=== PATIENT | female | born 1970 | race African-American/Black ===

== ENCOUNTER 2017-04-18 07:23 | Inpatient (IN) | payer BC ==
[2017-04-17 15:38] LABS: BASOPHILS % (AUTO) 0.4 % (0-1); EOSINOPHILS # (AUTO) 0.2 X10'3 (0-0.9); EOSINOPHILS % (AUTO) 1.9 % (0-6); HEMATOCRIT 39.4 % (35.0-45.0); HEMOGLOBIN 13.1 g/dl (12.0-16.0); LYMPHOCYTES # (AUTO) 2.7 X10'3 (1.1-4.8); LYMPHOCYTES % (AUTO) 29.3 % (21-51); MEAN CORPUSCULAR HEMOGLOBIN 26.6 PG (27.0-31.0); MEAN CORPUSCULAR HGB CONC 33.2 % (33.0-36.5); MEAN CORPUSCULAR VOLUME 80.3 FL (78-98); MEAN PLATELET VOLUME 10.1 FL (7.4-10.4); MONOCYTES # (AUTO) 0.6 X10'3 (0-0.9); MONOCYTES % (AUTO) 6.1 % (2-12); NEUTROPHILS # (AUTO) 5.6 X10'3 (1.8-7.7); NEUTROPHILS % (AUTO) 62.3 % (42-75); PLATELET COUNT 235 X10'3 (140-440); RED BLOOD COUNT 4.91 X10'6 (4.20-5.60); RED CELL DISTRIBUTION WIDTH 14.1 % (11.5-14.5); WHITE BLOOD COUNT 9.1 X10'3 (4.5-11.0)
[2017-04-17 15:49] LABS: PARTIAL THROMBOPLASTIN TIME 27 SECONDS (22-32); PROTHROMBIN TIME 10.3 SECONDS (9.0-12.0)
[2017-04-17 15:56] LABS: ANION GAP 5 (8-16); BLOOD UREA NITROGEN 9 MG/DL (7-18); BUN/CREATININE RATIO 10.3 (6.6-38.0); CHLORIDE 105 MMOL/L (99-107); CREATININE 0.87 MG/DL (0.40-0.90); GLUCOSE 91 MG/DL (70-104); POTASSIUM 4.2 MMOL/L (3.5-5.1); SODIUM 137 MMOL/L (135-145)
[2017-04-17 15:57] LABS: ALANINE AMINOTRANSFERASE 20 U/L (12-78); ALBUMIN 3.8 G/DL (3.4-5.0); ALKALINE PHOSPHATASE 54 IU/L (46-116); ASPARTATE AMINO TRANSFERASE 13 U/L (10-37); BILIRUBIN,TOTAL 0.4 MG/DL (0.1-1.0); CALCIUM 9.3 MG/DL (8.5-10.1); TOTAL PROTEIN 7.7 G/DL (6.4-8.2); eGFR 85 ML/MIN
[2017-04-18] VITALS (19 sets, daily range): BP systolic 102–190; BP diastolic 52–94
[~2017-04-18] VITALS: Ht 165.1 cm; Wt 130.9 kg
[2017-04-18] MEDS ORDERED: diphenhydrAMINE 25mg capsule PO PRN (07:45)
[2017-04-18] MEDS ORDERED: nitroGLYCERIN 0.4mg SUBLingual tab SL PRN (07:45)
[2017-04-18] MEDS ORDERED: LORazepam 0.5 MG tablet PO PRN (07:45)
[2017-04-18] MEDS ORDERED: AMLO2.5T2 PO (08:28)
[2017-04-18] MEDS: normal saline 1000ml 1,000 ML IV SCH ×4 (09:08→19:16)
[2017-04-18] MEDS ORDERED: iohexol 350 MG/ML 50ML vial IV ONE (10:29)
[2017-04-18] MEDS ORDERED: LIDOcaine 1%/PF (10mg/ml) 5ml vial ONE ×3 (10:29→10:57)
[2017-04-18] MEDS ORDERED: iohexol 350MG/ML 100ml bottle IV ONE (10:31)
[2017-04-18] MEDS ORDERED: midazolam 2 mg/2 ml injection ONE (10:36)
[2017-04-18] MEDS ORDERED: fentaNYL/PF 50MCG/1 ML 2ML syringe ONE (10:36)
[2017-04-18] MEDS ORDERED: atropine 0.1mg/ml 10ml syringe ONE (10:53)
[2017-04-18] MEDS ORDERED: heparin 1,000unit/ml 10ml vial 10 ML ONE (11:32)
[2017-04-18] MEDS ORDERED: cyclobenzaprine 10mg tablet PO PRN (12:25)
[2017-04-18] MEDS ORDERED: OXAZEpam 15mg capsule PO PRN (12:25)
[2017-04-18] MEDS ORDERED: magnesium hydroxide 30ml (MOM) UD suspension PO PRN (12:25)
[2017-04-18] MEDS ORDERED: nitroGLYCERIN-Tridil 50MG/D5W 250 ML IV SCH (12:25)
[2017-04-18] MEDS ORDERED: proCHLORperazine 10 MG/2 ml inj IV PRN ×2 (12:25→12:30)
[2017-04-18] MEDS ORDERED: acetaminophen 325mg tablet PO PRN (12:25)
[2017-04-18] MEDS ORDERED: HYDROcodone/acetaminophen 10/325mg tab PO PRN (12:30)
[2017-04-18] MEDS ORDERED: normal saline 1000ml 1,000 ML IV SCH (12:30)
[2017-04-18] MEDS ORDERED: ondansetron/PF 4mg/2ml inj IV PRN (12:30)
[2017-04-18] MEDS ORDERED: heparin 10,000 units/1 ML INJ IV PRN (12:35)
[2017-04-18] MEDS ORDERED: heparin 10,000 units/1 ML INJ IV ONE (12:35)
[2017-04-18 12:57] LABS: BASOPHILS # (AUTO) 0.1 X10'3 (0-0.2); BASOPHILS % (AUTO) 0.8 % (0-1); EOSINOPHILS # (AUTO) 0.1 X10'3 (0-0.9); EOSINOPHILS % (AUTO) 1.9 % (0-6); HEMATOCRIT 38.7 % (35.0-45.0); HEMOGLOBIN 12.9 g/dl (12.0-16.0); LYMPHOCYTES # (AUTO) 2.2 X10'3 (1.1-4.8); LYMPHOCYTES % (AUTO) 36.2 % (21-51); MEAN CORPUSCULAR HEMOGLOBIN 26.6 PG (27.0-31.0); MEAN CORPUSCULAR HGB CONC 33.3 % (33.0-36.5); MEAN CORPUSCULAR VOLUME 79.9 FL (78-98); MEAN PLATELET VOLUME 10.5 FL (7.4-10.4); MONOCYTES # (AUTO) 0.5 X10'3 (0-0.9); MONOCYTES % (AUTO) 7.6 % (2-12); NEUTROPHILS # (AUTO) 3.3 X10'3 (1.8-7.7); NEUTROPHILS % (AUTO) 53.5 % (42-75); PLATELET COUNT 203 X10'3 (140-440); RED BLOOD COUNT 4.84 X10'6 (4.20-5.60); RED CELL DISTRIBUTION WIDTH 14.3 % (11.5-14.5); WHITE BLOOD COUNT 6.1 X10'3 (4.5-11.0)
[2017-04-18 13:11] LABS: CHOL/HDL RATIO 3.1 (0.00-4.99); CHOLESTEROL 193 MG/DL (0-200); HDL CHOLESTEROL 63 MG/DL (35-60); LDL CHOLESTEROL 121 MG/DL (50-100); TRIGLYCERIDES 44 MG/DL (20-135)
[2017-04-18 13:20] LABS: PARTIAL THROMBOPLASTIN TIME 53 SECONDS (22-32); PROTHROMBIN TIME 10.7 SECONDS (9.0-12.0)
[2017-04-18] MEDS ORDERED: LORazepam 2 mg/ml vial IV ONE (13:50)
[2017-04-18] MEDS ORDERED: famotidine/PF 10 mg/ml inj IV ONE (13:50)
[2017-04-18] MEDS ORDERED: MESSAGE TO NURSING IV ONE (14:30)
[2017-04-18] MEDS ORDERED: dextrose 50%-water 50ml dispensing syringe IV PRN (14:30)
[2017-04-18] MEDS ORDERED: MESSAGE TO NURSING PO ONE ×4 (14:30)
[2017-04-18 16:22] LABS: LARGE PLATELETS FEW; PLATELET ESTIMATE NORMAL
[2017-04-18] MEDS ORDERED: albuterol 2.5 MG/3 ML nebule NEB ONE (17:10)
[2017-04-18 17:36] LABS: HEMOGLOBIN A1C 5.1 % (4.5-6.2)
[2017-04-18 17:41] LABS: ALANINE AMINOTRANSFERASE 16 U/L (12-78); ALBUMIN 3.2 G/DL (3.4-5.0); ALBUMIN/GLOBULIN RATIO 0.9 (1.1-1.5); ALKALINE PHOSPHATASE 47 IU/L (46-116); ANION GAP 10 (8-16); ASPARTATE AMINO TRANSFERASE 10 U/L (10-37); BILIRUBIN,TOTAL 0.4 MG/DL (0.1-1.0); BLOOD UREA NITROGEN 8 MG/DL (7-18); CALCIUM 8.6 MG/DL (8.5-10.1); CHLORIDE 106 MMOL/L (99-107); CREATININE 0.73 MG/DL (0.40-0.90); GLUCOSE 87 MG/DL (70-104); POTASSIUM 3.8 MMOL/L (3.5-5.1); SODIUM 140 MMOL/L (135-145); TOTAL CARBON DIOXIDE 24.3 MMOL/L (24-32); TOTAL PROTEIN 6.9 G/DL (6.4-8.2); eGFR > 90 ML/MIN
[2017-04-18] MEDS: HYDROcodone/acetaminophen 5mg/325mg tablet PO PRN ×2 (17:57→22:27)
[2017-04-18 18:01] LABS: ABG HCO3 20.4 mmol/L (22.0-26.0); ABG PCO2 (T) 31.5 mmHg (32.0-45.0); ABG PH (T) 7.429 (7.350-7.450); ABG PO2 (T) 88.9 mmHg (83-108); FCOHb 0.2 % (0.5-1.5); FMetHb 0.1 % (0.3-1.12); FO2Hb 96.7 % (94-100); TOTAL HEMOGLOBIN 12.9 G/dl (12.0-16.0)
[2017-04-18] MEDS: docusate sod 100mg capsule PO SCH (20:29)
[2017-04-18] MEDS: mupirocin 2% ointment 22GM NS SCH (20:29)
[2017-04-18] MEDS ORDERED: atorvastatin 20mg tablet PO SCH (21:00)
[2017-04-19] VITALS (24 sets, daily range): BP systolic 106–166; BP diastolic 45–82
[2017-04-19] MEDS: normal saline 1000ml 1,000 ML IV SCH (01:35)
[2017-04-19 02:41] LABS: BASOPHILS % (AUTO) 0.3 % (0-1); EOSINOPHILS % (AUTO) 0.4 % (0-6); HEMATOCRIT 32.9 % (35.0-45.0); LYMPHOCYTES # (AUTO) 1.4 X10'3 (1.1-4.8); LYMPHOCYTES % (AUTO) 20.2 % (21-51); MEAN CORPUSCULAR HEMOGLOBIN 26.6 PG (27.0-31.0); MEAN CORPUSCULAR HGB CONC 33.4 % (33.0-36.5); MEAN CORPUSCULAR VOLUME 79.8 FL (78-98); MEAN PLATELET VOLUME 10.5 FL (7.4-10.4); MONOCYTES # (AUTO) 0.5 X10'3 (0-0.9); MONOCYTES % (AUTO) 7.6 % (2-12); NEUTROPHILS # (AUTO) 4.8 X10'3 (1.8-7.7); NEUTROPHILS % (AUTO) 71.5 % (42-75); PLATELET COUNT 170 X10'3 (140-440); RED BLOOD COUNT 4.11 X10'6 (4.20-5.60); RED CELL DISTRIBUTION WIDTH 14.3 % (11.5-14.5); WHITE BLOOD COUNT 6.8 X10'3 (4.5-11.0)
[2017-04-19 02:56] LABS: ALANINE AMINOTRANSFERASE 19 U/L (12-78); ALBUMIN/GLOBULIN RATIO 0.9 (1.1-1.5); ALKALINE PHOSPHATASE 41 IU/L (46-116); ANION GAP 6 (8-16); ASPARTATE AMINO TRANSFERASE 12 U/L (10-37); BILIRUBIN,TOTAL 0.3 MG/DL (0.1-1.0); BLOOD UREA NITROGEN 9 MG/DL (7-18); BUN/CREATININE RATIO 11.8 (6.6-38.0); CALCIUM 8.2 MG/DL (8.5-10.1); CHLORIDE 109 MMOL/L (99-107); CREATININE 0.76 MG/DL (0.40-0.90); GLUCOSE 110 MG/DL (70-104); POTASSIUM 3.7 MMOL/L (3.5-5.1); SODIUM 140 MMOL/L (135-145); TOTAL CARBON DIOXIDE 25.1 MMOL/L (24-32); TOTAL PROTEIN 6.2 G/DL (6.4-8.2); eGFR > 90 ML/MIN
[2017-04-19] MEDS ORDERED: cefazolin/dext.iso 2gm/50ml 50 ML IV ONE (06:30)
[2017-04-19] MEDS ORDERED: vancomycin/NS 1 GM ADD-VANTAGE 250 ML IV ONE (06:30)
[2017-04-19] MEDS: docusate sod 100mg capsule PO SCH ×2 (08:00→20:00)
[2017-04-19] MEDS ORDERED: calcium chloride 100 MG/1 ML inj IV ONE (08:00)
[2017-04-19] MEDS ORDERED: aspirin 81mg tab.chew PO SCH (08:00)
[2017-04-19] MEDS ORDERED: heparin 1,000 units/ml 10ml inj ONE (08:00)
[2017-04-19] MEDS ORDERED: papaverine 30 mg/ml 2ml inj. ONE (08:00)
[2017-04-19] MEDS ORDERED: heparin 10,000 units/1 ML INJ ONE (08:00)
[2017-04-19] MEDS: HYDROcodone/acetaminophen 5mg/325mg tablet PO PRN (08:33)
[2017-04-19] MEDS: mupirocin 2% ointment 22GM NS SCH ×2 (08:33→20:05)
[2017-04-19] MEDS ORDERED: MESSAGE TO NURSING PO ONE (10:00)
[2017-04-19] MEDS ORDERED: SUFENTANIL CITRATE 50 MCG/ML 2ml ampule IV ONE (10:37)
[2017-04-19] MEDS ORDERED: MIDAZolam 1mg/ml 10ml vial ONE (10:37)
[2017-04-19] MEDS ORDERED: LIDOcaine 2% 5ml jelly ONE (10:41)
[2017-04-19] MEDS ORDERED: propofol inj 20 ML IV ONE (10:50)
[2017-04-19] MEDS ORDERED: phenylephrine 10mg/ml inj IV ONE (10:51)
[2017-04-19] MEDS ORDERED: rocuronium 10mg/ml inj IV ONE ×3 (10:51→14:34)
[2017-04-19] MEDS ORDERED: ePHEDrine 50MG/ML INJ. ONE (10:51)
[2017-04-19] MEDS ORDERED: LIDOcaine 2% (20mg/ml) 5ml vial ONE (10:51)
[2017-04-19] MEDS ORDERED: 0.9 % SODIUM CHLORIDE 10 ML VIAL ONE ×2 (10:51)
[2017-04-19] MEDS ORDERED: fentaNYL/PF 50MCG/1 ML 2ML syringe IV PRN (10:55)
[2017-04-19] MEDS ORDERED: midazolam 2 mg/2 ml injection IV PRN (10:55)
[2017-04-19] MEDS ORDERED: protamine sulf. 10mg/ml inj. IV ONE (11:00)
[2017-04-19] MEDS ORDERED: niCARDipine in sodium Chloride, iso-osm 20mg/200ml bag IV ONE (11:00)
[2017-04-19] MEDS ORDERED: isoflurane 100ml inhalation liquid IH ONE (11:00)
[2017-04-19] MEDS ORDERED: metoprolol tartrate 1mg/ml inj IV ONE ×2 (11:00→14:50)
[2017-04-19] MEDS ORDERED: nitroGLYCERIN in D5W 50mg/250ml (Tridil) infusion IV ONE (11:00)
[2017-04-19 11:56] LABS: ABG HCO3 20.3 mmol/L (22.0-26.0); ABG OXYGEN SATURATION 99.1 % (95-98); ABG PCO2 34.3 mmHg (35.0-45.0); ABG PO2 461.3 mmHg (60.0-100.0); CL (ABG) 107 mmol/L (99-107); FCOHb 0.3 % (0.5-1.5); FMetHb 1.2 % (0.3-1.12); FO2Hb 97.6 % (94-100); GLUCOSE (ABG) 95 mg/dl (70-105); IONIZED CA (ABG) 1.15 mmol/L (1.03-1.32); K (ABG) 3.7 mmol/L (3.3-5.1); NA (ABG) 137 mmol/L (135-145); TOTAL HEMOGLOBIN 11.8 G/dl (12.0-16.0)
[2017-04-19] MEDS ORDERED: papaverine 30 mg/ml 2ml inj. IA ONE (12:26)
[2017-04-19] MEDS ORDERED: insulin Lispro (HumaLOG) vial - multi-dose SQ SCH (13:00)
[2017-04-19] MEDS ORDERED: DOPamine 400mg/D5W 250ml 250 ML IV PRN (14:59)
[2017-04-19] MEDS ORDERED: nitroGLYCERIN-Tridil 50MG/D5W 250 ML IV PRN (14:59)
[2017-04-19] MEDS ORDERED: sodium chloride 0.45% 1,000 ML IV SCH (14:59)
[2017-04-19] MEDS ORDERED: dextrose 50%-water 50ml dispensing syringe IV PRN (15:00)
[2017-04-19] MEDS ORDERED: sodium phosphate inj. 30 MMOL in dextrose 5%-water 250 ML IV PRN (15:00)
[2017-04-19] MEDS ORDERED: normal saline 250ml IV soln 250 ML IV PRN (15:00)
[2017-04-19] MEDS ORDERED: insulin regular, human inj. 100 UNITS in normal saline 100ml IV soln 100 ML IV SCH ×2 (15:00)
[2017-04-19] MEDS ORDERED: magnesium hydroxide 30ml (MOM) UD suspension PO PRN (15:00)
[2017-04-19] MEDS ORDERED: Neutra Phos packet PO PRN (15:00)
[2017-04-19] MEDS ORDERED: morphine sulfate 8 MG/ML SYRINGE IV PRN (15:00)
[2017-04-19] MEDS ORDERED: sodium phosphate inj. 15 MMOL in dextrose 5%-water 150 ML IV PRN (15:00)
[2017-04-19] MEDS ORDERED: magnesium 4gm in 100ml NS 100 ML IV PRN (15:00)
[2017-04-19] MEDS ORDERED: acetaminophen 325mg tablet PO PRN (15:00)
[2017-04-19] MEDS ORDERED: magnesium 2GM in 50ml NS 50 ML IV PRN (15:00)
[2017-04-19] MEDS ORDERED: potassium Cl 20mEq/100mL bag 100 ML IV PRN ×2 (15:00)
[2017-04-19] MEDS ORDERED: metoclopramide 5 mg/ml inj IV PRN (15:00)
[2017-04-19] MEDS ORDERED: albumin (Human) 5% 250ml 250 ML IV PRN (15:00)
[2017-04-19] MEDS ORDERED: ondansetron/PF 4mg/2ml inj IV PRN (15:00)
[2017-04-19 15:36] LABS: ABG BASE EXCESS -3.7 mmol/L (-2.0-3.0); ABG HCO3 21.7 mmol/L (22.0-26.0); ABG OXYGEN SATURATION 99.2 % (95-98); ABG PCO2 (T) 39.4 mmHg (32.0-45.0); ABG PH (T) 7.357 (7.350-7.450); FCOHb 0.3 % (0.5-1.5); FMetHb 0.2 % (0.3-1.12); FO2Hb 98.7 % (94-100); PATIENT TEMPERATURE 36.4; PEEP 5 cm H2O; RESPIRATORY RATE 12 b/min; TIDAL VOLUME 600 mL; TOTAL HEMOGLOBIN 12.6 G/dl (12.0-16.0)
[2017-04-19] MEDS: insulin regular, human inj. 100 UNITS in normal saline 100ml IV soln 100 ML IV SCH ×4 (15:43→19:06)
[2017-04-19] MEDS: morphine sulfate 8 MG/ML SYRINGE IV PRN ×2 (15:44→16:12)
[2017-04-19 15:52] LABS: BASOPHILS % (AUTO) 0.3 % (0-1); EOSINOPHILS # (AUTO) 0.2 X10'3 (0-0.9); EOSINOPHILS % (AUTO) 1.4 % (0-6); HEMOGLOBIN 11.6 g/dl (12.0-16.0); LYMPHOCYTES # (AUTO) 2.4 X10'3 (1.1-4.8); LYMPHOCYTES % (AUTO) 16.4 % (21-51); MEAN CORPUSCULAR HEMOGLOBIN 26.5 PG (27.0-31.0); MEAN CORPUSCULAR HGB CONC 33.1 % (33.0-36.5); MEAN CORPUSCULAR VOLUME 80.1 FL (78-98); MEAN PLATELET VOLUME 10.5 FL (7.4-10.4); MONOCYTES # (AUTO) 0.8 X10'3 (0-0.9); MONOCYTES % (AUTO) 5.5 % (2-12); NEUTROPHILS # (AUTO) 11.1 X10'3 (1.8-7.7); NEUTROPHILS % (AUTO) 76.4 % (42-75); PLATELET COUNT 172 X10'3 (140-440); RED BLOOD COUNT 4.36 X10'6 (4.20-5.60); RED CELL DISTRIBUTION WIDTH 13.8 % (11.5-14.5); WHITE BLOOD COUNT 14.5 X10'3 (4.5-11.0)
[2017-04-19] MEDS ORDERED: CEFAZOLIN SODIUM/NORMAL SALINE 100 ML IV SCH (16:00)
[2017-04-19 16:06] LABS: ALANINE AMINOTRANSFERASE 12 U/L (12-78); ALBUMIN 2.8 G/DL (3.4-5.0); ALBUMIN/GLOBULIN RATIO 0.8 (1.1-1.5); ALKALINE PHOSPHATASE 42 IU/L (46-116); ANION GAP 8 (8-16); ASPARTATE AMINO TRANSFERASE 11 U/L (10-37); BILIRUBIN,TOTAL 0.6 MG/DL (0.1-1.0); BLOOD UREA NITROGEN 6 MG/DL (7-18); BUN/CREATININE RATIO 8.3 (6.6-38.0); CHLORIDE 108 MMOL/L (99-107); CREATININE 0.72 MG/DL (0.40-0.90); GLUCOSE 137 MG/DL (70-104); MAGNESIUM 1.5 MG/DL (1.5-2.4); PHOSPHORUS 2.9 MG/DL (2.3-4.5); POTASSIUM 3.6 MMOL/L (3.5-5.1); SODIUM 140 MMOL/L (135-145); TOTAL CARBON DIOXIDE 24.4 MMOL/L (24-32); TOTAL PROTEIN 6.1 G/DL (6.4-8.2); eGFR > 90 ML/MIN
[2017-04-19] MEDS: niCARDipine/sod cl 20mg/200ml 200 ML IV PRN ×2 (16:19→19:06)
[2017-04-19 16:24] LABS: INR 1.1 INR; PARTIAL THROMBOPLASTIN TIME 26 SECONDS (22-32); PROTHROMBIN TIME 11.4 SECONDS (9.0-12.0)
[2017-04-19] MEDS: insulin Lispro (HumaLOG) vial - multi-dose SQ SCH (16:25)
[2017-04-19] MEDS ORDERED: propofol 1000mg/100ml bottle 100 ML IV ONE (16:46)
[2017-04-19] MEDS: propofol 1000mg/100ml bottle 100 ML IV PRN ×2 (16:49→22:51)
[2017-04-19] MEDS: vancomycin/NS 1 GM ADD-VANTAGE 250 ML IV SCH (20:04)
[2017-04-19] MEDS: potassium Cl 20mEq/100mL bag 100 ML IV PRN ×2 (20:05→22:32)
[2017-04-20] VITALS (24 sets, daily range): BP systolic 106–142; BP diastolic 47–72
[2017-04-20] MEDS: ceFAZolin/D5W- 1GM premix 50 ML IV SCH ×4 (00:29→23:26)
[2017-04-20 00:41] LABS: BASOPHILS % (AUTO) 0.1 % (0-1); EOSINOPHILS % (AUTO) 0 % (0-6); HEMATOCRIT 33.4 % (35.0-45.0); HEMOGLOBIN 11.2 g/dl (12.0-16.0); LYMPHOCYTES # (AUTO) 0.9 X10'3 (1.1-4.8); LYMPHOCYTES % (AUTO) 6.1 % (21-51); MEAN CORPUSCULAR HEMOGLOBIN 26.6 PG (27.0-31.0); MEAN CORPUSCULAR HGB CONC 33.5 % (33.0-36.5); MEAN CORPUSCULAR VOLUME 79.3 FL (78-98); MEAN PLATELET VOLUME 10.3 FL (7.4-10.4); MONOCYTES # (AUTO) 0.7 X10'3 (0-0.9); MONOCYTES % (AUTO) 5.2 % (2-12); NEUTROPHILS # (AUTO) 12.3 X10'3 (1.8-7.7); NEUTROPHILS % (AUTO) 88.6 % (42-75); PLATELET COUNT 188 X10'3 (140-440); RED BLOOD COUNT 4.21 X10'6 (4.20-5.60); RED CELL DISTRIBUTION WIDTH 14.3 % (11.5-14.5); WHITE BLOOD COUNT 13.9 X10'3 (4.5-11.0)
[2017-04-20 01:05] LABS: PARTIAL THROMBOPLASTIN TIME 29 SECONDS (22-32); PROTHROMBIN TIME 10.7 SECONDS (9.0-12.0)
[2017-04-20 01:06] LABS: ALANINE AMINOTRANSFERASE 13 U/L (12-78); ALBUMIN 2.7 G/DL (3.4-5.0); ALBUMIN/GLOBULIN RATIO 0.8 (1.1-1.5); ALKALINE PHOSPHATASE 43 IU/L (46-116); ANION GAP 6 (8-16); ASPARTATE AMINO TRANSFERASE 15 U/L (10-37); BILIRUBIN,TOTAL 0.3 MG/DL (0.1-1.0); BLOOD UREA NITROGEN 4 MG/DL (7-18); CHLORIDE 107 MMOL/L (99-107); CREATININE 0.57 MG/DL (0.40-0.90); GLUCOSE 113 MG/DL (70-104); MAGNESIUM 2.4 MG/DL (1.5-2.4); PHOSPHORUS 2.4 MG/DL (2.3-4.5); POTASSIUM 4.1 MMOL/L (3.5-5.1); SODIUM 137 MMOL/L (135-145); TOTAL CARBON DIOXIDE 24.5 MMOL/L (24-32); TOTAL PROTEIN 6.1 G/DL (6.4-8.2); eGFR > 90 ML/MIN
[2017-04-20] MEDS: potassium Cl 20mEq/100mL bag 100 ML IV PRN ×2 (01:40→04:48)
[2017-04-20] MEDS: niCARDipine/sod cl 20mg/200ml 200 ML IV PRN ×2 (02:13→08:02)
[2017-04-20] MEDS: propofol 1000mg/100ml bottle 100 ML IV PRN (02:13)
[2017-04-20 05:31] LABS: ABG BASE EXCESS -5.2 mmol/L (-2.0-3.0); ABG HCO3 18.9 mmol/L (22.0-26.0); ABG OXYGEN SATURATION 97.5 % (95-98); ABG PCO2 (T) 32.6 mmHg (32.0-45.0); ABG PH (T) 7.382 (7.350-7.450); ABG PO2 (T) 102.8 mmHg (83-108); FCOHb 0.3 % (0.5-1.5); FMetHb 0.2 % (0.3-1.12); MINUTE VOLUME 9 L/min; PATIENT TEMPERATURE 37.6; PEEP 5 cm H2O; RESPIRATORY RATE (OBSERVED) 16 b/min; TOTAL HEMOGLOBIN 11.7 G/dl (12.0-16.0)
[2017-04-20] MEDS: atorvastatin 10mg tablet PO SCH (08:00)
[2017-04-20] MEDS ORDERED: metoprolol tartrate 12.5mg (1/2 tablet) PO SCH (08:00)
[2017-04-20] MEDS: docusate sod 100mg capsule PO SCH ×2 (08:00→19:35)
[2017-04-20] MEDS: aspirin 325mg tablet, delayed-release (Ecotrin) PO SCH (08:00)
[2017-04-20] MEDS: pantoprazole 40mg Tablet.DR PO SCH (08:00)
[2017-04-20] MEDS: mupirocin 2% ointment 22GM NS SCH ×2 (08:02→19:35)
[2017-04-20 08:57] LABS: MAGNESIUM 2.9 MG/DL (1.5-2.4); POTASSIUM 4.4 MMOL/L (3.5-5.1)
[2017-04-20] MEDS ORDERED: metoprolol tartrate 12.5mg (1/2 tablet) PO ONE (09:00)
[2017-04-20] MEDS: insulin Lispro (HumaLOG) vial - multi-dose SQ SCH ×3 (09:00→18:00)
[2017-04-20] MEDS: vancomycin/NS 1 GM ADD-VANTAGE 250 ML IV SCH ×2 (09:15→19:35)
[2017-04-20] MEDS: HYDROcodone/acetaminophen 10/325mg tab PO PRN ×2 (12:55→23:26)
[2017-04-20] MEDS: LACTOSE-FREE FOOD (BOOST BREEZE) 237ML PO SCH ×2 (13:00→18:00)
[2017-04-20] MEDS ORDERED: mineral oil/petrolatum ophthal oint EACHEYE SCH (14:00)
[2017-04-20] MEDS: metoprolol tartrate 12.5mg (1/2 tablet) PO SCH (19:35)
[2017-04-21] VITALS (21 sets, daily range): BP systolic 90–136; BP diastolic 53–78
[2017-04-21 02:26] LABS: BASOPHILS % (AUTO) 0 % (0-1); EOSINOPHILS # (AUTO) 0.1 X10'3 (0-0.9); EOSINOPHILS % (AUTO) 0.5 % (0-6); HEMATOCRIT 30.8 % (35.0-45.0); HEMOGLOBIN 10.2 g/dl (12.0-16.0); LYMPHOCYTES # (AUTO) 1.2 X10'3 (1.1-4.8); LYMPHOCYTES % (AUTO) 10.8 % (21-51); MEAN CORPUSCULAR HEMOGLOBIN 26.6 PG (27.0-31.0); MEAN CORPUSCULAR HGB CONC 33.1 % (33.0-36.5); MEAN CORPUSCULAR VOLUME 80.3 FL (78-98); MEAN PLATELET VOLUME 11.2 FL (7.4-10.4); MONOCYTES # (AUTO) 0.9 X10'3 (0-0.9); MONOCYTES % (AUTO) 8.3 % (2-12); NEUTROPHILS # (AUTO) 9.1 X10'3 (1.8-7.7); NEUTROPHILS % (AUTO) 80.4 % (42-75); PLATELET COUNT 172 X10'3 (140-440); RED BLOOD COUNT 3.84 X10'6 (4.20-5.60); RED CELL DISTRIBUTION WIDTH 14.5 % (11.5-14.5); WHITE BLOOD COUNT 11.3 X10'3 (4.5-11.0)
[2017-04-21 02:38] LABS: ALBUMIN 2.4 G/DL (3.4-5.0); ANION GAP 8 (8-16); BLOOD UREA NITROGEN 8 MG/DL (7-18); BUN/CREATININE RATIO 9.4 (6.6-38.0); CHLORIDE 107 MMOL/L (99-107); CREATININE 0.85 MG/DL (0.40-0.90); GLUCOSE 107 MG/DL (70-104); MAGNESIUM 2.4 MG/DL (1.5-2.4); PHOSPHORUS 2.6 MG/DL (2.3-4.5); POTASSIUM 4.5 MMOL/L (3.5-5.1); SODIUM 137 MMOL/L (135-145); TOTAL CARBON DIOXIDE 22.4 MMOL/L (24-32); eGFR 87 ML/MIN
[2017-04-21] MEDS: insulin regular, human inj. 100 UNITS in normal saline 100ml IV soln 100 ML IV SCH ×2 (06:30)
[2017-04-21] MEDS: HYDROcodone/acetaminophen 10/325mg tab PO PRN ×2 (06:52→15:33)
[2017-04-21] MEDS: aspirin 325mg tablet, delayed-release (Ecotrin) PO SCH (07:26)
[2017-04-21] MEDS: metoprolol tartrate 12.5mg (1/2 tablet) PO SCH ×2 (07:26→20:39)
[2017-04-21] MEDS: atorvastatin 10mg tablet PO SCH (07:26)
[2017-04-21] MEDS: docusate sod 100mg capsule PO SCH ×2 (07:26→20:39)
[2017-04-21] MEDS: mupirocin 2% ointment 22GM NS SCH (07:26)
[2017-04-21] MEDS: pantoprazole 40mg Tablet.DR PO SCH (08:24)
[2017-04-21] MEDS: insulin Lispro (HumaLOG) vial - multi-dose SQ SCH (08:25)
[2017-04-21] MEDS: LACTOSE-FREE FOOD (BOOST BREEZE) 237ML PO SCH ×3 (08:28→18:00)
[2017-04-21 08:32] LABS: LARGE PLATELETS FEW; PLATELET ESTIMATE NORMAL
[2017-04-22 03:00] VITALS: BP 121/62
[2017-04-22 05:08] LABS: BASOPHILS % (AUTO) 0.3 % (0-1); EOSINOPHILS # (AUTO) 0.2 X10'3 (0-0.9); EOSINOPHILS % (AUTO) 2.5 % (0-6); HEMATOCRIT 30.5 % (35.0-45.0); LYMPHOCYTES # (AUTO) 1.5 X10'3 (1.1-4.8); LYMPHOCYTES % (AUTO) 17.9 % (21-51); MEAN CORPUSCULAR HEMOGLOBIN 26.4 PG (27.0-31.0); MEAN CORPUSCULAR HGB CONC 32.8 % (33.0-36.5); MEAN CORPUSCULAR VOLUME 80.7 FL (78-98); MEAN PLATELET VOLUME 10.3 FL (7.4-10.4); MONOCYTES # (AUTO) 0.7 X10'3 (0-0.9); MONOCYTES % (AUTO) 8.8 % (2-12); NEUTROPHILS # (AUTO) 5.8 X10'3 (1.8-7.7); NEUTROPHILS % (AUTO) 70.5 % (42-75); PLATELET COUNT 179 X10'3 (140-440); RED BLOOD COUNT 3.78 X10'6 (4.20-5.60); RED CELL DISTRIBUTION WIDTH 14.6 % (11.5-14.5); WHITE BLOOD COUNT 8.2 X10'3 (4.5-11.0)
[2017-04-22 05:19] LABS: ALBUMIN 2.2 G/DL (3.4-5.0); ANION GAP 10 (8-16); BLOOD UREA NITROGEN 7 MG/DL (7-18); CALCIUM 8.1 MG/DL (8.5-10.1); CHLORIDE 105 MMOL/L (99-107); GLUCOSE 106 MG/DL (70-104); MAGNESIUM 1.9 MG/DL (1.5-2.4); PHOSPHORUS 2.7 MG/DL (2.3-4.5); POTASSIUM 3.8 MMOL/L (3.5-5.1); SODIUM 138 MMOL/L (135-145); eGFR > 90 ML/MIN
[2017-04-22 06:35] VITALS: BP 115/62
[2017-04-22] MEDS: atorvastatin 10mg tablet PO SCH (07:24)
[2017-04-22] MEDS: pantoprazole 40mg Tablet.DR PO SCH (07:24)
[2017-04-22] MEDS: docusate sod 100mg capsule PO SCH ×2 (07:25→19:18)
[2017-04-22] MEDS: metoprolol tartrate 12.5mg (1/2 tablet) PO SCH ×2 (07:26→19:18)
[2017-04-22] MEDS: aspirin 325mg tablet, delayed-release (Ecotrin) PO SCH (07:26)
[2017-04-22] MEDS: HYDROcodone/acetaminophen 10/325mg tab PO PRN ×3 (07:26→20:30)
[2017-04-22] MEDS: LACTOSE-FREE FOOD (BOOST BREEZE) 237ML PO SCH ×3 (08:00→18:00)
[2017-04-22] MEDS ORDERED: magnesium 4gm in 100ml NS 100 ML IV PRN (10:05)
[2017-04-22] MEDS ORDERED: potassium Cl 40MEQ/NS 500ml 500 ML IV PRN ×2 (10:05)
[2017-04-22] MEDS ORDERED: potassium Cl 20 mEq SR tablet PO PRN (10:05)
[2017-04-22] MEDS ORDERED: magnesium Cl slow-release 64mg tablet PO PRN (10:05)
[2017-04-22 11:00] VITALS: BP 106/62
[2017-04-22] MEDS ORDERED: furosemide 40mg tablet PO ONE (13:55)
[2017-04-22 15:00] VITALS: BP 121/68
[2017-04-22 19:00] VITALS: BP 121/78
[2017-04-22 23:00] VITALS: BP 112/76
[2017-04-23 03:00] VITALS: BP 139/72
[2017-04-23 05:00] LABS: BASOPHILS % (AUTO) 0.4 % (0-1); EOSINOPHILS # (AUTO) 0.2 X10'3 (0-0.9); EOSINOPHILS % (AUTO) 3.1 % (0-6); HEMATOCRIT 29.4 % (35.0-45.0); HEMOGLOBIN 9.6 g/dl (12.0-16.0); LYMPHOCYTES # (AUTO) 1.5 X10'3 (1.1-4.8); LYMPHOCYTES % (AUTO) 18.8 % (21-51); MEAN CORPUSCULAR HEMOGLOBIN 26.4 PG (27.0-31.0); MEAN CORPUSCULAR HGB CONC 32.7 % (33.0-36.5); MONOCYTES # (AUTO) 0.7 X10'3 (0-0.9); MONOCYTES % (AUTO) 8.6 % (2-12); NEUTROPHILS # (AUTO) 5.5 X10'3 (1.8-7.7); NEUTROPHILS % (AUTO) 69.1 % (42-75); PLATELET COUNT 232 X10'3 (140-440); RED BLOOD COUNT 3.63 X10'6 (4.20-5.60); RED CELL DISTRIBUTION WIDTH 14.6 % (11.5-14.5); WHITE BLOOD COUNT 7.9 X10'3 (4.5-11.0)
[2017-04-23 05:29] LABS: ALBUMIN 2.1 G/DL (3.4-5.0); ANION GAP 9 (8-16); BLOOD UREA NITROGEN 7 MG/DL (7-18); BUN/CREATININE RATIO 8.4 (6.6-38.0); CALCIUM 8.1 MG/DL (8.5-10.1); CHLORIDE 105 MMOL/L (99-107); CREATININE 0.83 MG/DL (0.40-0.90); GLUCOSE 132 MG/DL (70-104); MAGNESIUM 1.5 MG/DL (1.5-2.4); SODIUM 139 MMOL/L (135-145); TOTAL CARBON DIOXIDE 25.1 MMOL/L (24-32); eGFR 90 ML/MIN
[2017-04-23 06:59] VITALS: BP 122/78
[2017-04-23] MEDS ORDERED: furosemide 40mg tablet PO SCH ×2 (08:00)
[2017-04-23] MEDS: LACTOSE-FREE FOOD (BOOST BREEZE) 237ML PO SCH ×3 (08:00→18:42)
[2017-04-23] MEDS: aspirin 325mg tablet, delayed-release (Ecotrin) PO SCH (09:03)
[2017-04-23] MEDS: metoprolol tartrate 12.5mg (1/2 tablet) PO SCH ×2 (09:03→20:14)
[2017-04-23] MEDS: docusate sod 100mg capsule PO SCH ×2 (09:04→20:14)
[2017-04-23] MEDS: pantoprazole 40mg Tablet.DR PO SCH (09:04)
[2017-04-23] MEDS: atorvastatin 10mg tablet PO SCH (09:04)
[2017-04-23] MEDS: potassium Cl 20 mEq SR tablet PO PRN ×3 (09:05→18:43)
[2017-04-23] MEDS: HYDROcodone/acetaminophen 10/325mg tab PO PRN ×2 (09:13→14:08)
[2017-04-23] MEDS ORDERED: magnesium citrate 296ml oral solution PO ONE (09:35)
[2017-04-23 11:00] VITALS: BP 120/74
[2017-04-23] MEDS: Protein Shake (high protein) 240ml (8oz) cup PO SCH ×2 (18:00→18:47)
[2017-04-23 19:00] VITALS: BP 125/75
[2017-04-23 23:00] VITALS: BP 134/80
[2017-04-24 03:00] VITALS: BP 116/63
[2017-04-24 05:31] LABS: ACT @ 1.70 U 310 SEC (193-297); ACT @ 2.84 U 435 SEC (260-420); BASELINE ACT 149 SEC (101-148)
[2017-04-24 05:31] LABS: ACTIVATED CLOTTING TIME 167 SEC (101-148)
[2017-04-24 06:05] LABS: BASOPHILS % (AUTO) 0.4 % (0-1); EOSINOPHILS # (AUTO) 0.2 X10'3 (0-0.9); EOSINOPHILS % (AUTO) 2.1 % (0-6); HEMATOCRIT 30.2 % (35.0-45.0); HEMOGLOBIN 10.1 g/dl (12.0-16.0); LYMPHOCYTES # (AUTO) 1.9 X10'3 (1.1-4.8); LYMPHOCYTES % (AUTO) 23.1 % (21-51); MEAN CORPUSCULAR HEMOGLOBIN 26.6 PG (27.0-31.0); MEAN CORPUSCULAR HGB CONC 33.6 % (33.0-36.5); MEAN CORPUSCULAR VOLUME 79.1 FL (78-98); MEAN PLATELET VOLUME 9.1 FL (7.4-10.4); MONOCYTES # (AUTO) 0.8 X10'3 (0-0.9); MONOCYTES % (AUTO) 9.6 % (2-12); NEUTROPHILS # (AUTO) 5.4 X10'3 (1.8-7.7); NEUTROPHILS % (AUTO) 64.8 % (42-75); PLATELET COUNT 296 X10'3 (140-440); RED BLOOD COUNT 3.81 X10'6 (4.20-5.60); RED CELL DISTRIBUTION WIDTH 13.9 % (11.5-14.5); WHITE BLOOD COUNT 8.3 X10'3 (4.5-11.0)
[2017-04-24 07:00] VITALS: BP 121/78
[2017-04-24 07:17] LABS: ALBUMIN 2.2 G/DL (3.4-5.0); ANION GAP 5 (8-16); BLOOD UREA NITROGEN 7 MG/DL (7-18); BUN/CREATININE RATIO 9.7 (6.6-38.0); CALCIUM 8.7 MG/DL (8.5-10.1); CHLORIDE 107 MMOL/L (99-107); CREATININE 0.72 MG/DL (0.40-0.90); GLUCOSE 99 MG/DL (70-104); MAGNESIUM 1.9 MG/DL (1.5-2.4); PHOSPHORUS 3.1 MG/DL (2.3-4.5); POTASSIUM 4.4 MMOL/L (3.5-5.1); SODIUM 141 MMOL/L (135-145); TOTAL CARBON DIOXIDE 28.7 MMOL/L (24-32); eGFR > 90 ML/MIN
[2017-04-24] MEDS: atorvastatin 10mg tablet PO SCH (07:54)
[2017-04-24] MEDS: pantoprazole 40mg Tablet.DR PO SCH (07:54)
[2017-04-24] MEDS: aspirin 325mg tablet, delayed-release (Ecotrin) PO SCH (07:54)
[2017-04-24] MEDS: metoprolol tartrate 12.5mg (1/2 tablet) PO SCH (07:54)
[2017-04-24] MEDS: docusate sod 100mg capsule PO SCH (07:54)
[2017-04-24] MEDS: LACTOSE-FREE FOOD (BOOST BREEZE) 237ML PO SCH (07:55)
[2017-04-24] MEDS ORDERED: ASPI-41 PO (08:55)
[2017-04-24] MEDS ORDERED: COL100C PO (08:55)
[2017-04-24] MEDS ORDERED: METO25TA6 PO (08:55)
[2017-04-24] MEDS ORDERED: HYDR-3972 PO (08:55)
[2017-04-24] MEDS ORDERED: ATOR10TA PO (08:55)
== END 2017-04-24 15:35 | disposition home or self-care (01) | DRG 234 ==
LOC: SSTAY O 07:23 → CICU 2S 15:00 → PCU 3S 04-21 19:10
PROVIDERS: ADMIT Internal Medicine Cardiovascular Disease; ATTEND Thoracic Surgery (Cardiothoracic Vascular Surgery)
PROC: B246ZZ4 Ultrasonography of Right and Left Heart, Transesophageal (ICD-10-PCS; 2017-04-19)
PROC: 02100Z9 Bypass Coronary Artery, One Artery from Left Internal Mammary, Open Approach (ICD-10-PCS; principal; 2017-04-19 11:00)
PROC: 4A023N7 Measurement of Cardiac Sampling and Pressure, Left Heart, Percutaneous Approach (ICD-10-PCS; 2017-04-21)
PROC: B41J1ZZ Fluoroscopy of Other Lower Arteries using Low Osmolar Contrast (ICD-10-PCS; 2017-04-21)
PROC: B2111ZZ Fluoroscopy of Multiple Coronary Arteries using Low Osmolar Contrast (ICD-10-PCS; 2017-04-21)
PROC: B2151ZZ Fluoroscopy of Left Heart using Low Osmolar Contrast (ICD-10-PCS; 2017-04-21)
PROC: B31N1ZZ Fluoroscopy of Other Upper Arteries using Low Osmolar Contrast (ICD-10-PCS; 2017-04-21)
DX: I25.110 Atherosclerotic heart disease of native coronary artery with unstable angina pectoris (principal); Z68.42 Body mass index [BMI] 45.0-49.9, adult; E66.01 Morbid (severe) obesity due to excess calories; G47.33 Obstructive sleep apnea (adult) (pediatric); I10 Essential (primary) hypertension; J45.909 Unspecified asthma, uncomplicated; M19.90 Unspecified osteoarthritis, unspecified site; Z90.710 Acquired absence of both cervix and uterus
CPT/HCPCS: 0232T; 93312; 93325; 93458; Z7506; Z7508; 36415; 36600; 71010; 71020; 80048; 80053; 80061; 82330; 82435; 82803; 82947; 82948; 83036; 83735; 84100; 84132; 84295; 85018; 85025; 85347; 85384; 85610; 85730; 86885; 86900; 86901; 86920; 87070; 93005; 93880; 93971; 94002; 94003; 94060; 94640; 94668; 94760; 97110; 97116; 97161; 97530; 99152; 99153; A4620; A6212; A6213; A6255; A6257; A6258; A6402; A6449; A7000; A7048; C1713; C1751; C1758; C1769; J0461; J0690; J1644; J1815; J2001; J2060; J2250; J2270; J2370; J2405; J2440; J2704; J2720; J3010; J3370; J3475; J3480; J3490; J7030; J7120; Q0163; Q9967